=== PATIENT | female | born 1985 | race Hispanic/Latino ===

== ENCOUNTER 2018-05-26 20:40 | Inpatient (IN) | payer OTHER ==
[2018-05-26 21:04] VITALS: BMI 36.8
--- NOTE | 2018-05-26 21:17 | OBADHP ---
Datetime: 05/26/2018 21:12 IP Chief Complaint Other: vaginal spotting Admit Comment, IP Provider: at 38+wekd vame with c/o ctxs and vaginal spootting, no vb , lof+fm obhx primi pmh de med pnv all nkda psh de soch de ve /-2 a/p at 38+weeks in early labor/vahinal spotting admit to l_d npo/ivf klabs poin manag cervidil dr sammie chicas aware Pelvic Type - PN: Adequate Extremities - PN: Normal Abdomen - PN: Normal Back - PN: Normal Breast - PN: Normal Lungs - PN: Normal Heart - PN: Normal Thyroid - PN: Normal Neurologic - PN: Normal HEENT - PN: Normal General - PN: Normal FHR - Baseline A Provider: 140 Contraction Comments Provider: q1-4 IP Hx Assessment: The History has been Reviewed and is Current Vital Signs Provider: Reviewed; Within Normal Limits IP Chief Complaint: Uterine contractions NICHD Variability Prov Fetus A: Moderate 6-25bpm NICHD Accel Fetus A IP Provider: 15X15 FHR Category Provider Fetus A: Category I Dilatation, Provider: 2 Effacement, Provider: 60 Station, Provider: -2 Genitourinary Exam: Normal DTRs - PN: Normal EGA AdmitDate IP: 38.4 IP Adm Impression: Term, intrauterine IP Admit Plan: Admit to unit; Initiate labor induction protocol
[2018-05-26] MEDS ORDERED: Nalbuphine HCL 10 mg/ml Ampule IVP PRN (21:19)
[2018-05-26] MEDS ORDERED: Lactated Ringer's 1,000 ML IV SCH (21:30)
[2018-05-26 22:07] LABS: BASO % 0.4 % (0.0-2.0); EOS # 0.1 K/uL (0.0-0.7); EOS % 1.4 % (0.0-4.0); HEMOGLOBIN 11.8 g/dL (11.0-16.0); LYMPH # 2.5 K/uL (1.0-4.3); LYMPH % 22.9 % (20.0-40.0); MEAN CELL VOLUME 92.6 fL (81.0-99.0); MEAN CORPUSCULAR HEMOGLOBIN 31.7 pg (27.0-31.0); MEAN CORPUSCULAR HGB CONC 34.2 g/dL (33.0-37.0); MEAN PLATELET VOLUME 8.6 fL (7.2-11.7); MONO # 0.5 K/uL (0.0-0.8); MONO % 4.3 % (0.0-10.0); NEUT # 7.7 K/uL (1.8-7.0); NRBC % 0.1 % (0.0-2.0); RBC 3.72 Mil/uL (3.80-5.20); RED CELL DISTRIBUTION WIDTH 13.3 % (11.5-14.5); WHITE BLOOD COUNT 10.8 K/uL (4.8-10.8)
[2018-05-26 22:09] LABS: SQUAMOUS EPITHIAL 2 /hpf (0-5); URINE BACTERIA OCC (<OCC); URINE BILIRUBIN NEGATIVE (NEGATIVE); URINE BLOOD 3+ (NEGATIVE); URINE CLARITY Hazy (Clear); URINE GLUCOSE (UA) NORMAL (Normal); URINE LEUKOCYTE ESTERASE NEG Leu/uL (Negative); URINE PROTEIN 2+ mg/dL (NEGATIVE); URINE UROBILINOGEN NORMAL mg/dL (0.2-1.0)
[2018-05-26 22:18] LABS: ALB/GLOB RATIO 1.3 (1.0-2.1); ALBUMIN 3.9 g/dL (3.5-5.0); ALT/SGPT 17 U/L (9-52); AST/SGOT 21 U/L (14-36); BLOOD UREA NITROGEN 12 mg/dL (7-17); CALCIUM 8.6 mg/dl (8.6-10.4); GFR NON-AFRICAN AMERICAN > 60
[2018-05-26 22:25] LABS: RAPID PLASMA REAGIN NONREACTIVE (NONREACTIVE); URINE COLOR YELLOW (YELLOW)
[2018-05-26 22:48] LABS: HEPATITIS B SURFACE AG Negative (NEGATIVE)
--- NOTE | 2018-05-27 09:31 | OBPN ---
Datetime: 05/27/2018 09:17 IP Progress Impression: Normal progression of labor IP Procedures: Sterile Vag Exam IP Progress Plan: Continue present management; Augmentation; Anticipate Vaginal Delivery Membranes, Provider: Intact Contraction Comments Provider: irregular FHR - Baseline A Provider: 135 Gestation - Est Wks by US: 38w 5d Presentation-Admit: Vertex IP Progress Note Comment: Patient sitting up iin bed, eating. Reports (+) FM and occasional Ctx Cervical exam: as abv.e Cervidil removed Assessment: 32 y.o P0, 38w 5d, not in labor. S/P cervidil for cervical ripenining - some change. C ategory 1 tracing. D/W patient : ambulation, and will proceed with pitocin for augmentation. Also D/W pain managmeent in the form of epidural. Possibli.lity of abdominal delivery was also discussed. No questions offered. Patiente is clinically stable. Plan: 1) As above. 2) Anticipate vaginal delivery - as per Dr. Sera Pacheco Vital Signs Provider: Reviewed; Within Normal Limits FHR Category Provider Fetus A: Category I Dilatation, Provider: 3-4 Effacement, Provider: 50 Station, Provider: -3 NICHD Decel Fetus A IP Provider: None Datetime: 05/26/2018 21:12 NICHD Accel Fetus A IP Provider: 15X15 NICHD Variability Prov Fetus A: Moderate 6-25bpm
[2018-05-27] MEDS ORDERED: Oxytocin 30 UNIT 30 UNITS/500 ML BAG IV SCH (10:00)
[2018-05-27] MEDS ORDERED: Oxytocin 30 UNIT 30 UNITS/500 ML BAG IV ONE ×2 (10:17→17:35)
--- NOTE | 2018-05-27 16:07 | OBPN ---
Datetime: 05/27/2018 15:57 IP Procedures: Artificial ROM; Sterile Vag Exam IP Progress Plan: Continue present management; Augmentation; Anesthesia consult; Anticipate Vaginal Delivery Membranes, Provider: Ruptured Amniotic Fluid Color, Provider: Blood-tinged Contraction Comments Provider: 2 FHR - Baseline A Provider: 145 Gestation - Est Wks by US: 38w 5d Presentation-Admit: Vertex IP Progress Note Comment: Asked by Dr. Pacheco to perform AROM Patient received in bed, LDR#3: reports pain of Ctx, 10/18. (+) AFM. Interested in epidural at this time Cervical exam: as above. AROM perfomred - small amount of amnionic fluid; (+) small amount of carroll dy, mucoid discahrge. Pitocin = 12 mUnits/min Assessment: 32 y.o. PO, 38w 5d, latent phase of labor on pitocin. Category 1 tracing. Clinically s table. Plan: 1) Epidural 2) Anticipate vaginal delivery - sa per Dr. Junior SOODD Accel Fetus A IP Provider: 15X15 FHR Category Provider Fetus A: Category I NICHD Variability Prov Fetus A: Moderate 6-25bpm Dilatation, Provider: 4 Effacement, Provider: 50 Station, Provider: -2 NICHD Decel Fetus A IP Provider: None
[2018-05-27] MEDS ORDERED: Bupivacaine HCl/FentaNYL Cit 100 ML EPI ONE (16:44)
[2018-05-27] MEDS ORDERED: Penicillin G 5 Million Unit Vial IVPB ONE ×2 (19:22→19:29)
[2018-05-28] MEDS ORDERED: Bupivacaine HCl 0.25% PF (10 ml) Inj ONE
[2018-05-28] MEDS: AMPicillin 2 GM in Sodium Chloride 100 ML IVPB SCH ×5 (00:15→22:59)
[2018-05-28] MEDS ORDERED: Bupivacaine HCl/FentaNYL Cit 100 ML EPI ONE ×2 (01:02→07:59)
[2018-05-28] MEDS ORDERED: Gentamicin 80 mg/2mL Inj. ONE ×2 (01:18)
[2018-05-28] MEDS ORDERED: Oxytocin 30 UNIT 30 UNITS/500 ML BAG IV ONE ×2 (08:42→11:42)
[2018-05-28] MEDS ORDERED: Lidocaine 2% MPF (5 ml) Inj ONE (08:42)
[2018-05-28] MEDS ORDERED: Oxycodone/Acetaminophen 5/325 mg Tab PO PRN (11:42)
--- NOTE | 2018-05-28 12:26 | OBDS ---
DELIVERY PERSONNEL Delivery Doctor: Sera Pacheco MD Jive Developer: Raad Bell RN Anesthesiologist: Mateo MATERNAL INFORMATION Delivery Anesthesia: Epidural Medications in Delivery: methergine and cytotec givenper orders Estimated Blood Loss (ml): 500 Placenta Cultured: No Maternal Complications: Prolonged Second Stage > 2 Hrs Provider Comments: pt fully dilated and pushing. Verbal consent give for right mediolateral epistomy which was perfored afer given local anestheic. Atruamtic, spontanouus deliveyr of head, loose nuchal cord x 1 reduced. atrumatic, spontaneous delivery of anteiro followed by posterior shoulder followed by delivery of the body. both oral and nasal passages of javier baby were bulb suctioned. Umbilical cor d was clamped and cut. baby was [facility] cord blood and gaeses was collect ed adn sent x 2. Spontanoeu delivery of intact placent with membranes. fundus firm, second degree per ineal laceration with right mediolateral epsistomy noted adn repoared with 2-0 and 3-0 chormic. Good hemostasis, no complications. live female agpars 9,9 ebl 500ml no complications LABOR SUMMARY EDC: 06/05/2018 00:00 No. Babies in Womb: 1 Attempted: No Labor Anesthesia: Epidural LABOR INFORMATION Reason for Induction: Not Applicable Onset of Labor: 05/27/2018 15:00 Complete Dilatation: 05/28/2018 01:30 Cervical Ripening Agents: Cervidil Oxytocin: Induction Group B Beta Strep: GBS negative as per Antibiotics # of Doses: 2 Steroids Given: None Reason Steroids Not Administered: Not Applicable MEMBRANES Membranes Rupture Method: Artificial Rupture of Membranes: 05/27/2018 15:50 Length of Rupture (hrs): 18.87 Amniotic Fluid Color: Bloody Amniotic Fluid Amount: Small STAGES OF LABOR Stage 1 hrs: 10 Stage 1 min: 30 Stage 2 hrs: 9 Stage 2 min: 12 Stage 3 hrs: 0 Stage 3 min: 9 Total Time in Labor hrs: 19 Total Time in Labor min: 51 VAGINAL DELIVERY Episiotomy: Right Mediolateral Laceration Extension: Second Degree Laceration Type: Perineal Laceration Repair: Yes Initial Vag Sponge Count: 20 Final Vag Sponge Count: 20 Initial Vag Sharps Count: 4 Final Vag Sharps Count: 4 Sponge Count Correct: Yes Sharps Count Correct: Yes BABY A INFORMATION Delivery Date/Time: 05/28/2018 10:42 Method of Delivery: Vaginal Born in Route : No : N/A Forceps: N/A Vacuum Extraction: N/A Shoulder Dystocia : No SHOULDER DYSTOCIA BABY A Infant Delivery Date/Time: 05/28/2018 10:42 PRESENTATION/POSITION BABY A Presentation: Cephalic Cephalic Presentation: Vertex Vertex Position: Left Occipital Posterior Breech Presentation: N/A PLACENTA INFORMATION BABY A Placenta Delivery Time : 05/28/2018 10:51 Placenta Method of Delivery: Spontaneous Placenta Status: Delivered SCORES BABY A Heart Rate 1 min: >100 bpm Resp Effort 1 min: Good Cry Reflex Irritability 1 min: Cough or Sneeze or Pulls Away Muscle Tone 1 min: Active Motion Color 1 min: Body [place], Extremities Blue Resuscitation Effort 1 min: N/A SCORE 1 MIN: 9 Heart Rate 5 min: >100 bpm Resp Effort 5 min: Good Cry Reflex Irritability 5 min: Cough or Sneeze or Pulls Away Muscle Tone 5 min: Active Motion Color 5 min: Body [place], Extremities Blue Resuscitation Effort 5 min: N/A SCORE 5 MIN: 9 INFANT INFORMATION BABY A Gestational Age at Delivery: 38.6 Gestational Status: Term Outcome : Liveborn Condition : Stable Infant Sex: Female IDENTIFICATION/MEDS BABY A ID Band Number: [id number] ID Band Location: Left Leg; Left Arm Sensor Applied: Yes Sensor Number: [id number] Sensor Location : Cord Clamp WEIGHT/LENGTH BABY A Infant Birthweight (gms): 2855 Infant Weight (lb): 6 Weight (oz): 5 Infant Length Inches: 18.75 Infant Length cms: 47.6 CORD INFORMATION BABY A No. Cord Vessels: 3 Nuchal Cord : Around Neck x1, Loose Infant Cord pH Baby Arterial: 7.16 Cord pH Baby Venous: 7.26 Cord Blood Taken: Yes Suction: Mouth; Nose
[2018-05-28] MEDS: Benzocaine/Menthol 20%-0.5% Topical Spray (60 ml) TOP PRN (17:26)
[2018-05-29] MEDS: AMPicillin 2 GM in Sodium Chloride 100 ML IVPB SCH ×2 (05:22→12:25)
[2018-05-29 07:19] LABS: BASO % 0.1 % (0.0-2.0); EOS # 0.1 K/uL (0.0-0.7); EOS % 0.9 % (0.0-4.0); LYMPH # 2.1 K/uL (1.0-4.3); LYMPH % 19.1 % (20.0-40.0); MEAN CORPUSCULAR HEMOGLOBIN 32.1 pg (27.0-31.0); MEAN CORPUSCULAR HGB CONC 33.8 g/dL (33.0-37.0); MONO # 0.6 K/uL (0.0-0.8); MONO % 5.8 % (0.0-10.0); NEUT # 8.3 K/uL (1.8-7.0); NEUT % 74.1 % (50.0-75.0); RBC 2.69 Mil/uL (3.80-5.20); RED CELL DISTRIBUTION WIDTH 13.2 % (11.5-14.5); WHITE BLOOD COUNT 11.2 K/uL (4.8-10.8)
[2018-05-29 07:25] LABS: HEMOGLOBIN 8.6 g/dL (11.0-16.0)
[2018-05-29] MEDS: Multiple Vitamins Tab PO SCH (10:43)
--- NOTE | 2018-05-29 10:50 | OBPPN ---
Datetime: 05/29/2018 10:37 PP Pain Prov: Within normal limits PP Nausea Prov: Denies PP Flatus Prov: Yes PP BM Prov: No PP Breasts Prov: Normal PP Heart Prov: Normal PP Lungs Prov: Normal PP Abdomen/Uterus Prov: Normal PP Lochia Prov: Normal PP Vulva/Perineum Prov: Normal PP CVA Tenderness Prov: Normal PP Extremities Prov: Normal PP C/S Incision Prov: Not Applicable PP Progress Prov: Normal PP Comments Phys Exam Prov: Abdomen: Obese. Soft. Non distended. (+) BS. Fundus firm, mobile, non te nder, 1FB below umbilicus. Mild lochia. Episiotomy site - no edema, or induration. Extremities: no calf tenderness All other systems reviewed and are negative PP Impression Prov: Normal progression PP Plan Prov: Continue present management PP Progress Note Prov: Asked by Dr. Pacheco to see patient Patient received in bed, room 462 - sleepy. Breast- and bottlefeeding. Ambulating and voidng witho ut difficulty. (+) flatus; (-) BM ... "I'm afraid to". Denies dizziness, lightheadedness, chest pain or palpitations; nausea or vomiting. P.E.: as above. Mildly obese in NAD. Awake, alert, oriented to time, person and place. Cooperative . - 10.8/11.8/34.5/288 -> 11.2/8.6/25.6/206. Rh (+) Assessment: PPD#1, 32 y.o. P1, S/P over RML. Intrapartum fever on amp/gent; currently, afebr ile. Decrease in H/H noted; wnl. Patient is asymptomatic and hemodynamically stable. Patient is cli nically stable. Plan: 1) Continue IV antibiotics 2) Start iron supplementation 3) Continue present post care 4) Anticipate discharge home 05/30/18 Vital Signs Provider PP: Reviewed; Within Normal Limits
[2018-05-30] MEDS: Oxycodone/Acetaminophen 5/325 mg Tab PO PRN ×3 (00:59→15:41)
--- NOTE | 2018-05-30 08:38 | OBDCSUM ---
Datetime: 05/30/2018 08:33 Discharged to, Provider: Home Disch Instr Activity: Normal activity Disch Instr Diet: Regular Discharge Instructions, Provider: Routine instructions given Discharge Diagnosis, Provider: Term Delivered; Amnionitis Discharge Time: 05/30/2018 08:33 Disch Referrals: None Contraception discussed, Prov: Yes Discharge Comment, Provider: PT DOING WELL. COMPLAINTS OF PAIN AT THE INCISION SITE. PT STATES PERCO CET RELIEVES THE PAIN. ABULATING, AND TOLERATING PO DIET. - VSS: AFEBRILE - HGBS: 8.6 - FUNDUS FIRM AT THE UMBILICUS A/P: 32 S/P - VSS: AFEBRILE - HX OF INTRAPARTUM FEVER: ON A/G - AFEBRILE - TEMP TODAY: 98.1 - EPISIOTOMY PAIN: ON PERCOCET. -ANEMIA: FERROUS SULFTE AND COLACE ORDERED. - D/C HOME
[2018-05-30] MEDS: Multiple Vitamins Tab PO SCH (09:16)
[2018-05-30] MEDS: Benzocaine/Menthol 20%-0.5% Topical Spray (60 ml) TOP PRN (09:17)
[2018-05-30 09:21] LABS: BASO % 0.1 % (0.0-2.0); EOS # 0.2 K/uL (0.0-0.7); EOS % 1.9 % (0.0-4.0); HEMOGLOBIN 7.8 g/dL (11.0-16.0); LYMPH # 1.4 K/uL (1.0-4.3); LYMPH % 16.8 % (20.0-40.0); MEAN CELL VOLUME 94.9 fL (81.0-99.0); MEAN CORPUSCULAR HEMOGLOBIN 32.4 pg (27.0-31.0); MEAN CORPUSCULAR HGB CONC 34.1 g/dL (33.0-37.0); MONO # 0.4 K/uL (0.0-0.8); MONO % 4.8 % (0.0-10.0); NEUT # 6.2 K/uL (1.8-7.0); NEUT % 76.4 % (50.0-75.0); RBC 2.41 Mil/uL (3.80-5.20); RED CELL DISTRIBUTION WIDTH 13.3 % (11.5-14.5); WHITE BLOOD COUNT 8.1 K/uL (4.8-10.8)
[2018-05-30 15:37] VITALS: RESP 18
[2018-05-30 20:44] VITALS: BP 125/74; PULSE 90; TEMP 98.1; O2SAT 99
== END 2018-05-30 16:43 | disposition home or self-care (01) | DRG 805 ==
LOC: C.EROB 20:40 → C.4D 21:10 → C.4M 05-28 13:30
PROVIDERS: ADMIT Obstetrics & Gynecology; ATTEND Obstetrics & Gynecology
PROC: 3E0P7VZ Introduction of Hormone into Female Reproductive, Via Natural or Artificial Opening (ICD-10-PCS; 2018-05-26)
PROC: 10907ZC Drainage of Amniotic Fluid, Therapeutic from Products of Conception, Via Natural or Artificial Opening (ICD-10-PCS; 2018-05-27)
PROC: 10E0XZZ Delivery of Products of Conception, External Approach (ICD-10-PCS; principal; 2018-05-28)
PROC: 0KQM0ZZ Repair Perineum Muscle, Open Approach (ICD-10-PCS; 2018-05-28)
PROC: 0W8NXZZ Division of Female Perineum, External Approach (ICD-10-PCS; 2018-05-28)
DX: O99.214 Obesity complicating childbirth (principal); O41.1030 Infection of amniotic sac and membranes, unspecified, third trimester, not applicable or unspecified; Z37.0 Single live birth; Z3A.38 38 weeks gestation of pregnancy; E66.9 Obesity, unspecified; O69.81X0 Labor and delivery complicated by cord around neck, without compression, not applicable or unspecified; O70.1 Second degree perineal laceration during delivery; O63.1 Prolonged second stage (of labor)

== ENCOUNTER 2018-07-20 11:48 | Day surgery (SDC) | payer OTHER ==
[2018-07-20 12:12] VITALS: BMI 31.7
--- NOTE | 2018-07-20 12:33 | C.PDOC ---
History Of Present Illness 32-year-old female presents to the ED with continued pain and wound dehiscence to episiotomy site, ongoing since vaginal delivery 2 months ago. Patient was sent by her OB, Dr. Shirin Pacheco, for wound debridement. She reports pain to the site, along with light vaginal bleeding. Otherwise patient denies any abdominal pain, back pain, fevers, chills, nausea, vomiting, or dizziness. Time Seen by Provider: 07/20/18 12:19 Chief Complaint (Nursing): Female Genitourinary History Per: Patient History/Exam Limitations: no limitations Onset/Duration Of Symptoms: Days Current Symptoms Are (Timing): Still Present Quality Of Discomfort: "Pain" Alleviating Factors: None Abnormal Vaginal Bleeding: Yes Past Medical History Reviewed: Historical Data, Nursing Documentation, Vital Signs Vital Signs: Last Vital Signs Temp 98.4 F 07/20/18 12:04 Pulse 98 H 07/20/18 12:04 Resp 18 07/20/18 12:04 BP 132/84 07/20/18 12:04 Pulse Ox 99 07/20/18 12:04 - Medical History PMH: Denies: Depression, Diabetes, HTN - [facility] Procedures (05/26/18) DELIVERY OF PRODUCTS OF CONCEPTION, EXTERNAL APPROACH (05/26/18) DIVISION OF FEMALE PERINEUM, EXTERNAL APPROACH (05/26/18) DRAINAGE OF AMNIOTIC FL, THERAP FROM POC, VIA OPENING (05/26/18) REPAIR PERINEUM MUSCLE, OPEN APPROACH (05/26/18) Family History: States: Unknown Family Hx - Social History Hx Alcohol Use: No Hx Substance Use: No - Immunization History Hx Tetanus Toxoid Vaccination: Yes Hx Influenza Vaccination: No Hx Pneumococcal Vaccination: No Review Of Systems Constitutional: Negative for: Fever, Chills Cardiovascular: Negative for: Chest Pain Respiratory: Negative for: Shortness of Breath Gastrointestinal: Negative for: Nausea, Vomiting, Abdominal Pain Genitourinary: Positive for: Vaginal Bleeding, Other (+Pain to episiotomy site, and wound dehiscence). Negative for: Dysuria, Frequency Musculoskeletal: Negative for: Back Pain Neurological: Negative for: Weakness, Dizziness Physical Exam - Physical Exam Appears: Well, Non-toxic, No Acute Distress Skin: Warm, Dry, No Rash Head: Atraumatic, Normacephalic Eye(s): bilateral: Normal Inspection Oral Mucosa: Moist Neck: Normal ROM Chest: Symmetrical Cardiovascular: Rhythm Regular, No Murmur Respiratory: Normal Breath Sounds, No Rales, No Rhonchi, No Wheezing Gastrointestinal/Abdominal: Bowel Sounds (active), Soft, No Tenderness, No Guarding Pelvic: Normal External Exam, Other (Left episiotomy wound, open, no gross bleeding or foul odor, no discharge) Extremity: Bilateral: Atraumatic, Normal Color And Temperature, Normal ROM Neurological/Psych: Oriented x3, Normal Speech ED Course And Treatment - Laboratory Results Result Diagrams: 07/20/18 15:20 07/20/18 15:20 O2 Sat by Pulse Oximetry: 99 (RA) Pulse Ox Interpretation: Normal Medical Decision Making Medical Decision Making: Impression: Persistent pain to wound site Plan: Patient assessed and examined. Will discuss plan with patient's OB. 12:[address] Shirin Pacheco. Progress: 12:[address] Pacheco, who requests pre-op labs and to keep patient NPO. Patient is to be admitted for [id number]. Orders placed in for blood work. Urine collected and sent to lab for analysis. Disposition Counseled Patient/Family Regarding: Diagnosis - Disposition Disposition: HOSPITALIZED Disposition Time: 12:50 Condition: STABLE - POA Present On Arrival: None - Clinical Impression Clinical Impression: Episiotomy dehiscence - PA / CAN LINE EXAMINER / Resident Statement MD/DO has reviewed & agrees with the documentation as recorded. - Scribe Statement The provider has reviewed the documentation as recorded by the Scribnikkie Soliman All medical record entries made by the Scribe were at my direction and personally dictated by me. I have reviewed the chart and agree that the record accurately reflects my personal performance of the history, physical exam, medical decision making, and the department course for this patient. I have also personally directed, reviewed, and agree with the discharge instructions and disposition.
[2018-07-20 14:42] LABS: HCG,QUALITATIVE URINE NEGATIVE (NEGATIVE)
[2018-07-20 14:46] LABS: SQUAMOUS EPITHIAL 2 /hpf (0-5); URINE BACTERIA RARE (<OCC); URINE BILIRUBIN NEGATIVE (NEGATIVE); URINE BLOOD NEGATIVE (NEGATIVE); URINE CLARITY Hazy (Clear); URINE COLOR Straw (YELLOW); URINE GLUCOSE (UA) NORMAL (Normal); URINE LEUKOCYTE ESTERASE 2+ Leu/uL (Negative); URINE PROTEIN NEGATIVE (NEGATIVE); URINE UROBILINOGEN NORMAL mg/dL (0.2-1.0)
--- NOTE | 2018-07-20 15:12 | CP.SDSHP ---
Same Day Surgery H & P - History Proposed Procedure: Complex Episitomy debridement and repair with reapproximation Pre-Op Diagnosis: Wound dehiscense, perineal pain - Previous Medical/Surgical History Comments: s/p with Right mediolateral epsitomy with peristent wound dehisence failed conservatie mesurae iwth sever pain and drainage not improved with medcaion. pt presented to er due to severe discmof with didculyts sitting and standing and interfering with ablity to care for child. pt preorts ome bleeidng on and off form wound site, no fever, hclils, nasue, vomig, bowel or bladder compiats Previous Surgical History: none - Allergies Allergies: Allergies No Known Allergies Allergy (Verified 04/02/16 14:14) - Physical Exam General Appearance: NAD Vital Signs: Vital Signs 07/20/18 07/20/18 12:04 15:00 Temperature 98.4 F Pulse Rate 98 H Respiratory 18 Rate Blood Pressure 132/84 O2 Sat by Pulse 99 99 Oximetry Mental Status: Alert & Oriented x3 Neuro: WNL Heart: WNL Lungs: WNL GI: WNL - {Optional Preform as Required} RED CAP: Other (External Genitalit: posterio forcecette Right mediolateral dehiscene of epsiosm 4-5cm, ttp, erytemous, miimal discharge, 2cm deep extening along mediolateral plane) - Impression Impression: 32 y/o with mediolateral episitomy dehiscen and severe perineal pain. -conservative vs surgical intervetion barb patient, pt opted for surgical reaprpoixmation r/ba/i barb lindquist. presales consultant to or. npo, ivf. labs - Date & Time Date: 07/20/18 Time: 15:00 Short Stay Discharge - Short Stay Discharge Admitting Diagnosis/Reason for Visit: VAGINAL PAIN Disposition: HOME/ ROUTINE
[2018-07-20 15:31] LABS: BASO % 0.2 % (0.0-2.0); EOS # 0.3 K/uL (0.0-0.7); EOS % 3.8 % (0.0-4.0); LYMPH # 2.1 K/uL (1.0-4.3); LYMPH % 27.6 % (20.0-40.0); MEAN CORPUSCULAR HEMOGLOBIN 30.4 pg (27.0-31.0); MEAN CORPUSCULAR HGB CONC 33.1 g/dL (33.0-37.0); MEAN PLATELET VOLUME 7.8 fL (7.2-11.7); MONO # 0.4 K/uL (0.0-0.8); MONO % 4.9 % (0.0-10.0); NEUT # 4.8 K/uL (1.8-7.0); NEUT % 63.5 % (50.0-75.0); NRBC % 0.1 % (0.0-2.0); RBC 3.96 Mil/uL (3.80-5.20); RED CELL DISTRIBUTION WIDTH 12.7 % (11.5-14.5); WHITE BLOOD COUNT 7.6 K/uL (4.8-10.8)
[2018-07-20 15:35] LABS: MEAN CELL VOLUME 91.7 fL (81.0-99.0)
[2018-07-20 15:37] LABS: INR 1.1; PROTHROMBIN TIME 11.7 SECONDS (9.7-12.2)
[2018-07-20 15:43] LABS: ALB/GLOB RATIO 1.6 (1.0-2.1); ALBUMIN 4.7 g/dL (3.5-5.0); ALT/SGPT 37 U/L (9-52); AST/SGOT 30 U/L (14-36); BLOOD UREA NITROGEN 14 mg/dL (7-17); CALCIUM 9.4 mg/dl (8.6-10.4); GFR NON-AFRICAN AMERICAN > 60
[2018-07-20] MEDS ORDERED: Lidocaine/Epinephrine 1% 1:100000 10 ML IJ ONE (16:08)
[2018-07-20] MEDS ORDERED: ceFAZolin 1 gm in NS 1 GM/100 ML BAG IVPB ONE (16:08)
[2018-07-20] MEDS ORDERED: Bupivacaine 0.5%/Epi 1:200,000 (10 ML SOL) ONE (16:08)
[2018-07-20] MEDS ORDERED: Bacitracin Ointment 30 GM TUBE ONE (16:08)
[2018-07-20] MEDS ORDERED: Midazolam 2 MG/2 ML VIAL ONE (16:26)
[2018-07-20] MEDS ORDERED: Propofol 10 mg/ml Inj (20 ML) ONE ×2 (16:27→16:38)
[2018-07-20] MEDS ORDERED: HYDROmorphone 0.5 mg/0.5 ml ISec IVP PRN (17:02)
[2018-07-20 18:24] VITALS: BP 110/70; PULSE 71; RESP 18; TEMP 98; O2SAT 100
--- NOTE | 2018-07-21 02:11 | OP ---
PROCEDURE DATE: 07/20/2018 PREOPERATIVE DIAGNOSES: Complex episiotomy dehiscence, perineal pain. POSTOPERATIVE DIAGNOSES: Complex episiotomy dehiscence, perineal pain. PROCEDURE PERFORMED: Complex wound repair with episiotomy reapproximation, wound debridement and repair. SURGEON: Sera Pacheco MD OPERATIVE FINDINGS: A 5-cm right mediolateral episiotomy deep dehiscence, minimal discharge, no erythema along site with 3-cm deep tissue. Procedure performed as above. ESTIMATED BLOOD LOSS: 5 mL. BLOOD PRODUCTS: None. COMPLICATIONS: None. DESCRIPTION OF PROCEDURE: The patient was taken to the operating room where she was given sedation. Once she was adequately anesthetized, she was placed on the operating table in dorsal supine position with legs supported using stirrups. The patient was then prepped and draped in the usual sterile fashion. A time-out confirmed correct patient and correct procedure. The patient after was prepped and draped, she was given local anesthetic 0.25 Marcaine with epinephrine of the area. The abnormal tissue was carefully debrided using Adson pickup and scalpel. Following that, the area was carefully debrided, cleaned and irrigated. Following this, the skin was reapproximated and closed with 2-0 chromic in a series of interrupted fashion. Approximately seven sutures were used in asymptomatic manner. The skin was reapproximated. The area was cleaned. Bacitracin was applied as a dressing. There were no complications. At the end of the procedure, all needle, sponge, and instrument counts were noted to be correct x2. The patient tolerated the procedure well and was transferred to the recovery room in stable condition. Sera Pacheco MD
== END 2018-07-20 18:26 | disposition home or self-care (01) ==
LOC: C.SDS 11:48 → C.ER 11:48 → EDSTATUS 12:58 → C.SDS 15:05
PROVIDERS: ATTEND Obstetrics & Gynecology
DX: T81.30XA Disruption of wound, unspecified, initial encounter (principal)
CPT/HCPCS: 12020; 36415; 80053; 81001; 84703; 85025; 85610; 85730; 86850; 86900; 97597; 99285; J0690; J2001; J2250; J2704; J3010